=== PATIENT | male | born 1970 | race Caucasian/White ===

== ENCOUNTER 2019-08-15 09:29 | Emergency (ER) | payer SELFPAY ==
[~2019-08-15] VITALS: Ht 185.4 cm; Wt 131.5 kg
[2019-08-15] MEDS ORDERED: FLUORESCEIN 1MG EYE STRIP. OD ONE (09:45)
[2019-08-15] MEDS ORDERED: TETRACAINE 0.5% OPHTH SOLUTION 4ML BOTTLE. OD ONE (09:45)
--- NOTE | 2019-08-15 10:11 | PHYS DOC ---
Past History Past Medical History: GERD, Other Past Surgical History: No Surgical History Smoking: Cigarettes Alcohol Use: None Drug Use: None Adult General Chief Complaint Chief Complaint: EYE PROBLEMS HPI HPI Patient is a 49-year-old male presents complaining of right eye pain and photophobia for the past 2 days. He wears contacts, has taken the contacts out. He reports a history of wearing the contacts longer than he should be using them. Denies any trauma. No metal on metal strike. Nothing makes the symptoms better or worse. Symptoms are moderate in intensity.[] Review of Systems Review of Systems Constitutional: Denies fever or chills [] Eyes: See history of present illness[] HENT: Denies nasal congestion or sore throat [] Respiratory: Denies cough or shortness of breath [] Cardiovascular: No additional information not addressed in HPI [] GI: Denies abdominal pain, nausea, vomiting, bloody stools or diarrhea [] : Denies dysuria or hematuria [] Musculoskeletal: Denies back pain or joint pain [] Integument: Denies rash or skin lesions [] Neurologic: Denies headache, focal weakness or sensory changes [] Endocrine: Denies polyuria or polydipsia [] All other systems were reviewed and found to be within normal limits, except as documented in this note. Physical Exam Physical Exam Constitutional: Well developed, well nourished, no acute distress, non-toxic appearance. [] HENT: Normocephalic, atraumatic, bilateral external ears normal, oropharynx moist, no oral exudates, nose normal. [] Eyes: PERRLA, EOMI, bilateral conjunctival injection, right significantly greater than left. There is an ulcer that is cloudy on the right eye over the visual access at approximately 6:00. There is also an excoriation noted similar position on the left eye without any clouding. Anterior chambers clear, fundi are bilaterally normal.[] Neck: Normal range of motion, no tenderness, supple, no stridor. [] Cardiovascular:Heart rate regular rhythm, no murmur [] Lungs & Thorax: Bilateral breath sounds clear to auscultation [] Abdomen: Not examined. [] Skin: Warm, dry, no erythema, no rash. [] Back: No tenderness, no CVA tenderness. [] Extremities: No tenderness, no cyanosis, no clubbing, ROM intact, no edema. [] Neurologic: Alert and oriented X 3, normal motor function, normal sensory function, no focal deficits noted. [] Psychologic: Affect normal, judgement normal, mood normal. [] EKG EKG [] Radiology/Procedures Radiology/Procedures [] Course & Med Decision Making Course & Med Decision Making Pertinent Labs and Imaging studies reviewed. (See chart for details) ED course: Patient arrived, was placed in bed, and tolerated exam well. He had good pain relief with tetracaine instilled into his eye. Slit lamp was performed as noted above. After the slit-lamp, findings were discussed with the patient. He voiced understanding. Consultation was made with Dr. Vasquez in ophthalmology. He will see the patient in the office directly after leaving the emergency department. Patient was discharged in improved condition with all questions answered. Medical decision making: Patient with a corneal ulcer with long-standing contact use and overuse. Patient is being sent directly to ophthalmology for further evaluation and treatment.[] Dragon Disclaimer Dragon Disclaimer This electronic medical record was generated, in whole or in part, using a voice recognition dictation system. Departure Departure: Impression: Primary Impression: Corneal ulcer, right Disposition: HOME, SELF-CARE Condition: IMPROVED Referrals: PCP,NO (PCP) Patient Instructions: Corneal Ulcer Additional Instructions: Go directly to Dr. Roman's office, [address]. There phone number is [phone]. Return to the ER if worsening pain, change in vision, or any other concerns. SARATH TAVAREZ DO Aug 15, 2019 10:11
[2019-08-15 10:39] VITALS: BP 169/107
== END 2019-08-15 10:25 | disposition home or self-care (01) ==
LOC: ER 09:29
DX: H16.001 Unspecified corneal ulcer, right eye (principal); K21.9 Gastro-esophageal reflux disease without esophagitis; F17.210 Nicotine dependence, cigarettes, uncomplicated
CPT/HCPCS: 99283

== ENCOUNTER 2020-04-02 23:37 | Emergency (ER) | payer SELFPAY ==
[~2020-04-02] VITALS: Ht 185.4 cm; Wt 144.8 kg
[2020-04-03] MEDS ORDERED: KETOROLAC 30 MG/ML VIAL. IM ONE
[2020-04-03] MEDS ORDERED: DEXAMETHASONE 4 MG TABLET PO ONE
[2020-04-03] MEDS ORDERED: ORPH-16 PO (00:03)
--- NOTE | 2020-04-03 00:03 | PHYS DOC ---
Past History Past Medical History: Hypertension Past Surgical History: No Surgical History Smoking: Cigarettes Alcohol Use: Occasionally Drug Use: None General Adult EDM: Chief Complaint: RIB PAIN HPI: HPI: 50-year-old male presents with report of left anterior chest wall pain which is worse with movement and deep inspiration. Patient reports occurred on Monday night after patient had a "coughing spell ". Patient does smoke. Denies trauma. Denies fever or chills. Denies leg swelling or calf tenderness. Patient reports pain is reproducible with palpation. Review of Systems: Review of Systems: Constitutional: Denies fever or chills Eyes: Denies redness or eye pain HENT: Denies nasal congestion or sore throat Respiratory: Denies cough; reports pleuritic pain Cardiovascular: Reports chest wall pain; denies palpitations GI: Denies abdominal pain, nausea, or vomiting : Denies dysuria or hematuria Musculoskeletal: Denies back pain or joint pain Integument: Denies rash or skin lesions Neurologic: Denies headache, focal weakness or sensory changes Complete systems were reviewed and found to be within normal limits, except as documented in this note. Current Medications: Current Meds: Current Medications Medications (Trade) Dose Ordered Sig/Manisha Start Time Stop Time Status Last Admin Dose Admin Dexamethasone (Decadron) 10 mg 1X ONCE 04/03/20 00:00 04/03/20 00:01 UNV Ketorolac Tromethamine (Toradol 30mg Vial) 30 mg 1X ONCE 04/03/20 00:00 04/03/20 00:01 UNV Allergies: Allergies: Allergies Coded Allergies Type Severity Reaction Last Updated Verified No Known Drug Allergies 08/15/19 No Physical Exam: PE: Constitutional: Well developed, obese, no acute distress, non-toxic appearance HENT: Normocephalic, atraumatic Eyes: Conjunctiva normal, no discharge Neck: Normal range of motion, supple Cardiovascular: Heart rate normal, regular rhythm Lungs & Thorax: Bilateral breath sounds clear to auscultation, no wheezing, left anterior lower rib tenderness to palpation Abdomen: Soft, no tenderness, obese, no guarding/rebound tenderness/distention Skin: Warm, dry, no erythema, no rash Extremities: No calf tenderness, ROM intact, no edema Neurologic: Alert and oriented X 3, no focal deficits noted Psychologic: Affect normal, judgment normal Current Patient Data: Vital Signs: Vital Signs Date Time Temp Pulse Resp B/P (MAP) Pulse Ox O2 Delivery O2 Flow Rate FiO2 04/02/20 23:37 98.1 92 24 155/73 (100) 97 Room Air EKG: EKG: [] Radiology/Procedures: Radiology/Procedures: PROCEDURE: RIBS LEFT AND PA CHEST RIBS LEFT AND PA CHEST DATE: 04/02/2020 11:57 PM INDICATION: Reason: pain to anterior ribs s/p "coughing spell" / Spl. Instructions: / History: COMPARISON: None available. FINDINGS: Chest: Heart size is within normal limits. Mild bibasilar heterogeneous opacities. No evidence for pulmonary edema, pleural effusion, or pneumothorax. Bones: No radiographic evidence for a displaced, left-sided rib fracture is seen. IMPRESSION: No radiographic evidence for left-sided rib fracture. Mild bibasilar heterogeneous opacities, which could represent subsegmental atelectasis versus an infectious/inflammatory process. Electronically signed by: Sergio King MD (04/03/2020 1:05 AM) [facility] Course & Med Decision Making: Course & Med Decision Making Pertinent Imaging studies reviewed. (See chart for details) Patient presents with several day history of left anterior chest wall pain which is reproducible with palpation. Patient reports occurred after "coughing spell ". Patient does have history of smoking. Denies leg swelling or calf tenderness. Sats stable. Afebrile. Ice applied. Left rib/chest x-ray without acute process. Symptomatic treatment provided. Incentive spirometer with education provided. Work note provided as requested by patient. Patient stable for discharge with outpatient follow-up with PCP. Discussed findings and plan with patient, who acknowledges understanding and agreement. Kassidy Disclaimer: Kassidy Disclaimer: This electronic medical record was generated, in whole or in part, using a voice recognition dictation system. Departure Departure: Impression: Primary Impression: Chest wall pain Disposition: 01 HOME/RESIDENCE PRIOR TO ADM Condition: STABLE Referrals: PCP,MEDARDO (PCP) Patient Instructions: Chest Wall Pain, [id number], Incentive Spirometer Additional Instructions: Use over the counter Ibuprofen and/or Tylenol for pain or discomfort. May take in addition to prescribed muscle relaxer. ICE area of discomfort 20 min on then leave off next 20 min. Repeat several times daily for next few days. Scripts Orphenadrine Citrate (ORPHENADRINE CITRATE) 100 Mg Tablet.er 1 TAB PO BID PRN for MUSCLE PAIN, #14 TAB 0 Refills Prov: JESUS MORENO DO 04/03/20 Justification of Admission: Justification of Admission: Justification of Admission Dx: N/A JESUS MORENO DO Apr 03, 2020 00:03
[2020-04-03 00:20] VITALS: BP 133/59
--- NOTE | 2020-04-03 01:08 | RAD ---
RIBS LEFT AND PA CHEST DATE: 04/02/2020 11:57 PM INDICATION: Reason: pain to anterior ribs s/p "coughing spell" / Spl. Instructions: / History: COMPARISON: None available. FINDINGS: Chest: Heart size is within normal limits. Mild bibasilar heterogeneous opacities. No evidence for pulmonary edema, pleural effusion, or pneumothorax. Bones: No radiographic evidence for a displaced, left-sided rib fracture is seen. IMPRESSION: No radiographic evidence for left-sided rib fracture. Mild bibasilar heterogeneous opacities, which could represent subsegmental atelectasis versus an infectious/inflammatory process. Electronically signed by: Sergio King MD (04/03/2020 1:05 AM) [facility]
== END 2020-04-03 00:24 | disposition home or self-care (01) ==
LOC: ER 23:37
DX: R07.81 Pleurodynia (principal); I10 Essential (primary) hypertension; F17.210 Nicotine dependence, cigarettes, uncomplicated
CPT/HCPCS: 71101; 96372; 99283; G0238; J1885; J8540